=== PATIENT | male | born 1995 | race Caucasian/White ===

== ENCOUNTER 2017-04-12 08:10 | Emergency (ER) | payer SELFPAY ==
[2017-04-12 08:21] VITALS: BP 127/69
[2017-04-12] MEDS ORDERED: DEXAMETHASONE SOD PHOS 4 MG/ML VIAL PO ONE (09:00)
[2017-04-12] MEDS ORDERED: NAPROXEN 500 MG TABLET PO ONE (09:00)
--- NOTE | 2017-04-12 09:06 | ED.ADGEN ---
Past Medical History Past Medical History: No Pertinent History Past Surgical History: No Surgical History Alcohol Use: None Drug Use: None Adult General Chief Complaint Chief Complaint: SORE THROAT HPI HPI Patient is a 22 year old man, history of seasonal allergies, who smokes tobacco daily, who presents to the emergency department with a complaint of sore throat. Patient states he also experiencing some rhinorrhea, and a cough that is nonproductive. Patient states this began yesterday, states he has pain with swallowing but no difficulty breathing. Denies any chest pain or shortness breath, any fevers or chills, any recent travel or surgery, states his vaccinations as a child are up-to-date. Denies any rashes, any sick contacts or exposures, any swelling of the extremities. Patient states that he used a throat spray last night, but has not taken any other medications prior to coming to the ED. Review of Systems Review of Systems Constitutional: Denies fever or chills. [] Eyes: Denies change in visual acuity. [] HENT: Some nasal congestion, sore throat and cough. Respiratory: Cough that is nonproductive, no shortness of breath. Cardiovascular: Denies chest pain or edema. [] GI: Denies abdominal pain, nausea, vomiting, bloody stools or diarrhea. [] : Denies dysuria. [] Musculoskeletal: Denies back pain or joint pain. [] Integument: Denies rash. [] Neurologic: Denies headache, focal weakness or sensory changes. [] Endocrine: Denies polyuria or polydipsia. [] Lymphatic: Denies swollen glands. [] Psychiatric: Denies depression or anxiety. [] Current Medications Current Medications Current Medications Medications (Trade) Dose Ordered Sig/Nicole Start Time Stop Time Status Last Admin Dose Admin Dexamethasone Sodium Phosphate (Decadron) 4 mg 1X ONCE 04/12/17 09:00 04/12/17 09:01 DC 04/12/17 08:54 4 MG Naproxen (Naprosyn) 500 mg 1X ONCE 04/12/17 09:00 04/12/17 09:01 DC 04/12/17 08:54 500 MG Allergies Allergies Allergies Coded Allergies Type Severity Reaction Last Updated Verified No Known Drug Allergies 12/03/13 No Physical Exam Physical Exam Constitutional: Well developed, well nourished, no acute distress, non-toxic appearance. [] HENT: Normocephalic, atraumatic, bilateral external ears normal, oropharynx moist, no oral exudates, patient with mild turbinate swelling with clear rhinorrhea noted bilaterally, postnasal drip noted, with mild injection oropharynx, tonsils are 2+, no infiltrates. Eyes: PERRLA, EOMI, conjunctiva normal, no discharge. [] Neck: Normal range of motion, no tenderness, supple, no stridor. [] Cardiovascular:Heart rate regular rhythm, no murmur, S1, S2, no rubs or gallops. [] Lungs & Thorax: Bilateral breath sounds clear to auscultation, no wheezing, rhonchi, rales. No chest or crepitus or tenderness. [] Abdomen: Bowel sounds normal, soft, no tenderness, no masses, no pulsatile masses. [] Skin: Warm, dry, no erythema, no rash. [] Back: No tenderness, no CVA tenderness. [] Extremities: No tenderness, no cyanosis, no clubbing, ROM intact, no edema. [] Neurologic: Alert and oriented X 3, normal motor function, normal sensory function, no focal deficits noted. [] Psychologic: Affect normal, judgement normal, mood normal. [] Current Patient Data Vital Signs Vital Signs Date Time Temp Pulse Resp B/P (MAP) Pulse Ox O2 Delivery O2 Flow Rate FiO2 04/12/17 08:21 98.8 72 12 97 Room Air 98.8 EKG EKG Not indicated. [] Radiology/Procedures Radiology/Procedures Not indicated. [] Course & Med Decision Making Course & Med Decision Making Pertinent Labs and Imaging studies reviewed. (See chart for details) Patient well-appearing, examination is consistent with a viral upper respiratory infection, no evidence of lower airspace disease, no indications for antibiotics based on examination and history. He is afebrile without antipyretics in the ED, was given a dose of dexamethasone to help with throat swelling and pain, and also a dose of naproxen. Instructed to stay well-hydrated , get plenty of rest, use [id number] medications as directed, and to return to the ED for concerning symptoms as discussed. Patient voiced understanding and agreement with plan as stated. Discharged home in stable condition with plan as above. Dragon Disclaimer Dragon Disclaimer This electronic medical record was generated, in whole or in part, using a voice recognition dictation system. Departure Impression: Primary Impression: Viral illness Disposition: HOME, SELF-CARE Condition: IMPROVED ROSALIO KENNEDY DO Apr 12, 2017 09:06
== END 2017-04-12 09:00 | disposition home or self-care (01) ==
LOC: ER 08:10
DX: B34.9 Viral infection, unspecified (principal); F17.200 Nicotine dependence, unspecified, uncomplicated
CPT/HCPCS: 99283; J1100

== ENCOUNTER 2017-04-14 09:38 | Emergency (ER) | payer SELFPAY ==
[~2017-04-14] VITALS: Ht 165.1 cm; Wt 88.5 kg
[2017-04-14 09:59] VITALS: BP 124/76
--- NOTE | 2017-04-14 10:10 | PHYS DOC ---
Past Medical History Past Medical History: No Pertinent History Past Surgical History: No Surgical History Alcohol Use: Occasionally Drug Use: Marijuana Adult General Chief Complaint Chief Complaint: SORE THROAT [facility] HPI Patient is a 22 year old male presents to the emergency department with complaints of persistent sore throat. Patient was evaluated in the emergency department 3 days ago with complaints of sores throat and a positive strep exposure. Patient states that the rapid strep was negative he was given prednisone in the emergency department. He states he felt better for one day a members became ill again. He states the throat has progressively worsened and discomfort. He states that he has had a muffled voice, a fever. States that he is able to swallow but it is painful. He denies shortness of breath or difficulty with phonation. Review of Systems Review of Systems Constitutiona fever or chills [] HENT: Sore throat, voice change Respiratory: Denies cough or shortness of breath [] Cardiovascular: No additional information not addressed in HPI [] GI: Denies abdominal pain, nausea, vomiting, bloody stools or diarrhea [] Allergies Allergies Allergies Coded Allergies Type Severity Reaction Last Updated Verified No Known Drug Allergies 04/14/17 No Physical Exam Physical Exam Constitutional: Well developed, well nourished, no acute distress, non-toxic appearance. [] HENT: Normocephalic, atraumatic, bilateral external ears normal, posterior pharynx erythematous with exudate, tonsils 2+. Uvula is midline. Neck: Anterior cervical lymphadenopathy. Trachea midline Cardiovascular:Heart rate regular rhythm, no murmur [] Lungs & Thorax: Bilateral breath sounds clear to auscultation [] Abdomen: Bowel sounds normal, soft, no tenderness, no masses, no pulsatile masses. [] Skin: Warm, dry, no erythema, no rash. [] Current Patient Data Vital Signs Vital Signs Date Time Temp Pulse Resp B/P (MAP) Pulse Ox O2 Delivery O2 Flow Rate FiO2 04/14/17 09:59 98.5 75 16 96 Room Air 98.5 EKG EKG [] Radiology/Procedures Radiology/Procedures [] Course & Med Decision Making Course & Med Decision Making Patient had a positive strep exposure, fever, muffled voice, erythematous throat with exudate, or cervical adenopathy. There is no posterior lymphadenopathy. There is no culture pending from the previous strep screen, is elected this time to treat the patient for strep as he has 5 out of 5 the clincial symptoms. Pertinent Labs and Imaging studies reviewed. (See chart for details) [] Dragon Disclaimer Dragon Disclaimer This electronic medical record was generated, in whole or in part, using a voice recognition dictation system. Departure Departure Impression: Primary Impression: Strep pharyngitis Disposition: HOME, SELF-CARE Condition: STABLE Referrals: NO PCP (PCP) Patient Instructions: Strep Throat Additional Instructions: Patient advised to mix equal parts, one to 1, a Benadryl and Maalox, gargle and spit when necessary for pain management. ZACHARY PEARCE RESIDENTIAL TREATMENT COUNSELOR Apr 14, 2017 10:10
[2017-04-14] MEDS ORDERED: PENICILLIN G BENZATHINE LA 1,200,000 UNIT/2 ML DISP.SYRIN. IM ONE (10:15)
== END 2017-04-14 10:45 | disposition home or self-care (01) ==
LOC: ER 09:38
DX: J02.0 Streptococcal pharyngitis (principal); F12.10 Cannabis abuse, uncomplicated
CPT/HCPCS: 96372; 99283; J0561

== ENCOUNTER 2018-02-07 00:08 | Emergency (ER) | payer SELFPAY ==
[2018-02-07] MEDS: FLUORESCEIN OPHTH TEST STRIP. OD (00:54)
[2018-02-07] MEDS: TETRACAINE 0.5% OPHTH SOLUTION 4ML BOTTLE. OD (00:54)
[2018-02-07] MEDS: IBUPROFEN 800 MG TABLET. PO (01:19)
== END 2018-02-07 01:18 | disposition home or self-care (01) ==
LOC: ER 01:18
DX: S05.01XA Injury of conjunctiva and corneal abrasion without foreign body, right eye, initial encounter (principal); F12.10 Cannabis abuse, uncomplicated; W22.8XXA Striking against or struck by other objects, initial encounter; Y93.89 Activity, other specified; Y92.89 Other specified places as the place of occurrence of the external cause; Y99.8 Other external cause status
CPT/HCPCS: 99283

== ENCOUNTER 2018-05-18 13:50 | Emergency (ER) | payer SELFPAY ==
[2018-05-18 14:29] LABS: NEGATIVE OBC STREP NEG; POSITIVE OBC STREP POS
== END 2018-05-18 14:35 | disposition home or self-care (01) ==
LOC: ER 14:35
DX: J02.0 Streptococcal pharyngitis (principal); B95.5 Unspecified streptococcus as the cause of diseases classified elsewhere
CPT/HCPCS: 87880; 99283

== ENCOUNTER 2021-12-13 18:52 | Emergency (ER) | payer OTHER ==
[~2021-12-13] VITALS: Ht 167.6 cm; Wt 108.9 kg
[~2021-12-13 18:52] MED LIST: AMOX875T PO; OFLO5DRO RIGHTEYE; PRED50TA PO
--- NOTE | 2021-12-13 19:07 | PHYS DOC ---
Past Medical History Past Medical History: No Pertinent History Past Surgical History: No Surgical History Smoking Status: Current Every Day Smoker Alcohol Use: Occasionally Drug Use: Marijuana General Adult HPI: HPI: Patient is a 26-year-old male presenting via EMS for syncope. Reports he was at the kitchen table shortly prior to arrival and got up and ambulated to the couch as he felt nauseous. States having increased feelings of nausea and next thing he knew he was on the ground. Fall was witnessed by significant other and mother, patient hit posterior head on hardwood floor, loss of consciousness reported but patient immediately responded to verbal stimulus on the ground. Significant other and mother who witnessed the fall were concerned prompting EMS to be called. On arrival, patient found to be hemodynamically stable with small hematoma present posterior scalp. Nonetheless, he was transported to our facility for evaluation. Patient reports no symptoms besides focal posterior head pain on arrival. States he is otherwise been at baseline health but does admit he is unvaccinated against COVID-19, has had generalized upper respiratory symptoms for past 6 days and recently tested positive for COVID-19 48 hours ago. Reports he has had generalized malaise, fatigue with a dry nonproductive cough and nausea without excessive fluid loss such as vomiting and/or diarrhea. Review of Systems: Review of Systems: Fourteen body systems of review of systems have been reviewed. See HPI for pertinent positives and negative responses, other garland all other systems are neg ative, non-pertinent or non-contributory Heart Score: C/O Chest Pain: No HEART Score for Chest Pain: HEART Score for Chest Pain Response (Comments) Value History Slighlty/Non-Suspicious 0 ECG Normal 0 Age < 45 0 Risk Factors No Risk Factors 0 Total 0 Risk Factors: Risk Factors: DM, Current or recent (<one month) smoker, HTN, HLP, family history of CAD, obesity. Risk Scores: Score 0 - 3: 2.5% MACE over next 6 weeks - Discharge Home Score 4 - 6: 20.3% MACE over next 6 weeks - Admit for Clinical Observation Score 7 - 10: 72.7% MACE over next 6 weeks - Early Invasive Strategies Allergies: Allergies: Allergies Coded Allergies Type Severity Reaction Last Updated Verified No Known Drug Allergies 04/14/17 No Physical Exam: PE: General: Appears well, non toxic, and comfortable Skin: Warm, dry. Normal for ethnicity. HEENT: Small hematoma approximately 3 cm in diameter present to posterior scalp right of midline, PERRLA. Rhinorrhea and congestion. Nasal turbinates boggy b/l. Moist mucous membranes. Uvula midline. Maintaining secretions. No phonation changes. Neck: Trachea midline. Normal ROM. No stridor. Respiratory: Normal WOB. CTAB w/o w/r/r. No tachypnea. Cardiovascular: Regular rate and rhythm. Normal peripheral perfusion. Abdomen: Soft. Non tender. No distension. Back: Normal ROM. Musculoskeletal: No swelling or deformity. Neuro: Alert and oriented x 4. MAEE. Cranial nerves II through XII intact Lymph: No cervical LAD. Psych: Normal affect and mood. Current Patient Data: Labs: Laboratory Tests Test 12/13/21 19:08 Glucose (Fingerstick) 124 mg/dL Vital Signs: Vital Signs Date Time Temp Pulse Resp B/P (MAP) Pulse Ox O2 Delivery O2 Flow Rate FiO2 12/13/21 19:24 98.7 67 16 119/67 (84) 96 Room Air 98.7 Vital Signs Date Time Temp Pulse Resp B/P (MAP) Pulse Ox O2 Delivery O2 Flow Rate FiO2 12/13/21 19:24 98.7 67 16 119/67 (84) 96 Room Air 98.7 EKG: EKG: EKG ordered and interpreted by myself 1915 hrs. as sinus rhythm at 66 bpm, prolonged [place] interval at 202 otherwise unremarkable intervals, no axis deviation, no obvious ischemic findings, no STEMI Radiology/Procedures: Radiology/Procedures: Exam: CT head INDICATION: Syncope TECHNIQUE: Sequential axial images through the head were obtained without the administration of IV contrast. Exposure: One or more of the following in the visualized dose reduction techniques were utilized for this examination: 1. Automated exposure control 2. Adjustment of the MA and/or KV according to patient size 3. Use of iterative of reconstructive technique Comparisons: None FINDINGS: No focal parenchymal lesion or hemorrhage is identified. There is no midline shift or sulcal effacement. No acute vascular territory infarction is identified. Tiwari-white distinction is preserved. The ventricular system is within normal limits without compression hydrocephalus. The basal cisterns are well maintained. The visualized portions of the paranasal sinuses and mastoid air cells are well- pneumatized. No acute fractures. IMPRESSION: No acute intracranial abnormality. Electronically signed by: Carlos Enrique Garcia MD (12/13/2021 7:44 PM) [facility] /////////////////////////////// XR CHEST 1V History: Reason: syncope / Spl. Instructions: / History: Comparison: None. Findings: No consolidation or pleural effusion. Normal heart size. No pneumothorax. Impression: 1. No acute cardiopulmonary process. Electronically signed by: Paul Jimenez DO (12/13/2021 7:46 PM) [facility] Course & Med Decision Making: Course & Med Decision Making ABCs unremarkable HPI physical exam and comprehensive ER work-up nonconcerning for any emergent or surgical issues ER visit and findings disclosed with patient. Patient still asymptomatic throughout visit besides focal pain to posterior occiput. Joint decision to defer further diagnostic work-up such as blood work in ER setting his management would likely not change Continued supportive care and self quarantine instructions given to unvaccinated individual positive for COVID-19 infection. Strict return precautions discussed at length with good understanding by patient prior to ER departure Nic Disclaimer: Nic Disclaimer: This electronic medical record was generated, in whole or in part, using a voice recognition dictation system. Departure Departure Impression: Primary Impression: Syncope Additional Impression: COVID-19 Disposition: 01 HOME / SELF CARE / HOMELESS Condition: STABLE Referrals: NO PCP (PCP) Additional Instructions: You were seen for syncope in the setting of known COVID-19 infection. You sh ould make sure to drink plenty of fluids. It is unclear what caused your symptoms but your initial evaluation did not show any concerning symptoms or features. Return to the ED immediately if you develop worsening symptoms, chest pain, shortness of breath, numbness, tingling, weakness, vision change, or any other new or concerning symptoms. You should follow up with your primary care doctor when safe to do so after current COVID-19 infection to be reevaluated again. BENNY DEWEY DO Dec 13, 2021 19:07
--- NOTE | 2021-12-13 19:47 | RAD ---
Exam: CT head INDICATION: Syncope TECHNIQUE: Sequential axial images through the head were obtained without the administration of IV co ntrast. Exposure: One or more of the following in the visualized dose reduction techniques were utilized for this examination: 1. Automated exposure control 2. Adjustment of the MA and/or KV according to patient size 3. Use of iterative of reconstructive technique Comparisons: None FINDINGS: No focal parenchymal lesion or hemorrhage is identified. There is no midline shift or sulcal effaceme nt. No acute vascular territory infarction is identified. Tiwari-white distinction is preserved. The ventricular system is within normal limits without compression hydrocephalus. The basal cisterns are well maintained. The visualized portions of the paranasal sinuses and mastoid air cells are well-pneumatized. No acute fractures. IMPRESSION: No acute intracranial abnormality. Electronically signed by: Carlos Enrique Garcia MD (12/13/2021 7:44 PM) JULIANNA
--- NOTE | 2021-12-13 19:48 | RAD ---
XR CHEST 1V History: Reason: syncope / Spl. Instructions: / History: Comparison: None. Findings: No consolidation or pleural effusion. Normal heart size. No pneumothorax. Impression: 1. No acute cardiopulmonary process. Electronically signed by: Paul Jimenez DO (12/13/2021 7:46 PM) [facility]
[2021-12-13 20:07] VITALS: BP 116/73
--- NOTE | 2021-12-14 09:09 | EKG ---
[facility] [address] [place] [address] Test Date: 2021-12-13 Test Time: 19:10:36 Pat Name: TESSA DEE Department: Room: Gender: M Tight Cooper: : 1995 Requested By: BENNY DEWEY Order Number: [id number] Reading MD: Luis Eduardo Kevin Measurements Intervals [place] [facility] Rate: 66 P: 0 OR: 202 QRS: 19 QRSD: 88 T: 25 QT: 376 QTc: 396 Interpretive Statements SINUS RHYTHM MILD NON SPECIFIC ST CHANGES Electronically Signed On 12-14-2021 14:54:08 PHILOSOPHY FACULTY by Luis Eduardo Kevin
== END 2021-12-13 20:05 | disposition home or self-care (01) ==
LOC: ER 18:52
DX: U07.1 COVID-19 (principal); R55 Syncope and collapse; F17.200 Nicotine dependence, unspecified, uncomplicated
CPT/HCPCS: 70450; 71045; 82962; 93005; 99285-25